=== PATIENT | male | born 1990 | race Caucasian/White ===

== ENCOUNTER → 2020-11-27 | Outpatient (CLI) | payer BC ==
[~2020-11-27] VITALS: Ht 172.7 cm; Wt 118.2 kg
[~2020-11-27] MED LIST: BAMLANIVIMAB (NON FORM) 700 MG in NS (IVPB) 100 ML IV ONE; EPINEPHrine INJECTION 1 MG/ML AMP IM PRN; diphenhydrAMINE 50 MG/ML INJ (BENADRYL) IV PRN
[2020-11-27 12:58] VITALS: BP 137/87
[2020-11-27 14:55] VITALS: BP 134/78
== END ==
LOC: INFUSION 13:02
PROVIDERS: ATTEND Nurse Practitioner Family
DX: Z23 Encounter for immunization (principal); U07.1 COVID-19